=== PATIENT | male | born 2000 | race Two or more races ===

== ENCOUNTER 2025-01-29 17:49 | Emergency (ER) | payer MEDICAID, OTHER ==
[~2025-01-29] VITALS: Ht 180.3 cm; Wt 101.0 kg
[2025-01-29 18:22] LABS: Basophils # (auto) 0.1 10 ^3/uL (0-0.2); Basophils % (auto) 0.8 % (0.0-2.0); Eosinophils # (auto) 0.2 10 ^3/uL (0-0.8); Eosinophils % (auto) 2.9 % (0.0-7.0); Hematocrit 50.3 % (41.0-53.0); Hemoglobin 17.1 g/dL (13.5-17.5); Lymphocytes # (auto) 2.9 10 ^3/uL (0.4-5.4); Lymphocytes % (auto) 37.8 % (10.0-50.0); Mean Corpuscular Hemoglobin 30.5 pg (28.0-32.0); Mean Corpuscular Volume 89.7 fL (80.0-100.0); Monocytes # (auto) 0.3 10 ^3/uL (0-1.3); Monocytes % (auto) 4.6 % (0.0-12.0); Neutrophils # (auto) 4.1 10 ^3/uL (1.6-8.6); Neutrophils % (auto) 53.9 % (37.0-80.0); Nucleated Red Blood Cells % 0.1 %; Platelet Count (auto) 254 10^3/uL (140-450); Red Blood Cells 5.61 10^6/uL (4.5-5.90); Red Cell Distribution Width 13.6 % (11.8-14.3); White Blood Cell 7.5 10^3/uL (4.4-10.8)
[2025-01-29 18:38] LABS: Alanine Aminotransferase 36 U/L (7-40); Alkaline Phosphatase 98 U/L (46-116); Anion Gap 8 (5-15); Aspartate Aminotransferase 25 U/L (13-40); BUN/Creatinine Ratio 8.5 (10.0-20.0); Blood Urea Nitrogen 10 mg/dL (9-23); Carbon Dioxide 30 mmol/L (20-31); Chloride 101 mmol/L (98-107); Potassium 3.8 mmol/L (3.5-5.1); Sodium 139 mmol/L (136-145); Total Protein 7.7 g/dL (5.7-8.2)
[2025-01-29 18:39] LABS: Bilirubin, Total 0.5 mg/dL (0.2-1.0)
[2025-01-29 18:42] LABS: Glucose 136 mg/dL (74-106)
--- NOTE | 2025-01-29 18:59 | ECG ---
[facility] Test Date: 2025-01-29 Test Time: 18:01:06 Pat Name: MELVA WATT Department: ED Room: Gender: M Building [employer] Deputy [employer]: : 2000 Requested By: ALONSO RIOS Order Number: [id number] Reading MD: Costa Sheilds Measurements Intervals [place] Rate: 73 P: 55 MD: 131 QRS: 18 QRSD: 97 T: 46 QT: 370 QTc: 408 Interpretive Statements Sinus rhythm ST elev, probable normal early repol pattern Electronically Signed On 01-30-2025 13:46:12 PDT by Costa Shields Please click the below link to view image of tracing.
--- NOTE | 2025-01-29 19:00 | DVH ---
INDICATION: cp TECHNIQUE: Frontal view of the chest. COMPARISON: None FINDINGS: . The heart and mediastinal contours are grossly unremarkable. There is no evidence of pleural disea se. The lungs are clear. The bony structures of the chest are intact without fracture. IMPRESSION: 1. No evidence of acute disease.
--- NOTE | 2025-01-29 20:10 | ED.PDOC ---
HPI Comments 24y M who presents to the ED for chief complaint of chest pain. Pt states he has been having chest pain for the past 2 days. Pt states the pain was located by the L side of his chest, intermittent, dull in nature, non-radiating with no associated exacerbating factors. Pt states he assocaited history of hypertension and states he took 1 of his amlodipine and states it helped to somewhat alleviate his chest pain. Pt states was seen at [facility] yesterday for chest pain. Pt states he had cardiac work up done and states he was told his troponins came back 45 and 49 on repeat but states nothing was done and pt left after waiting for 9 hours. Pt states he now came to the ED for further evaluation. Pt states he also has been having palpitations for the past 2 days at night while attempting to sleep. Pt otherwise has noted history of HTN, asthma, sleep apnea and OCD. Pt otherwise denies diaphoresis, shortness of breath, fever, cough, chills, headache or dizziness. Pt in the ED, has noted RR of 11 but otherwise has noted stable vitals including temp of 98.6F, heart rate 75, BP of 125/82 and 02 sat of 97% on room air. Pt otherwise denies any other symptoms at this time. Chief Complaint: Chest Pain Time Seen by MD: 19:00 Primary Care Provider: NONE Reviewed Notes: Medications, Allergies Allergies: Coded Allergies: NO KNOWN ALLERGIES (Unverified , 01/29/25) Information Source: Patient Mode of Arrival: Ambulatory Brought in by: self Past Medical History PAST MEDICAL HISTORY: Asthma, HTN Past Medical History (Other): Sleep apnea, OCD, ADHD Surgical History: Denies all surgeries Family History Family History: Reviewed,noncontributory to illness, Family hx of DM, Family hx of HTN Social History Smoker: Cigarettes Alcohol: Denies ETOH Use Drugs: Denies Drug Use Lives In: Home Constitutional: denies: chills, diaphoresis, fatigue, fever, malaise, sweats, weakness, others EENTM: denies: blurred vision, double vision, ear bleeding, ear discharge, ear drainage, ear pain, ear ringing, eye pain, eye redness, hearing loss, mouth pain, mouth swelling, nasal discharge, nose bleeding, nose congestion, nose pain, photophobia, tearing, throat pain, throat swelling, voice changes, others Respiratory: denies: cough, hemoptysis, orthopnea, SOB at rest, shortness of breath, SOB with excertion, stridor, wheezing, others Cardiovascular: reports: chest pain; denies: dizzy spells, diaphoresis, Dyspnea on exertion, edema, irregular heart beat, left arm pain, lightheadedness, palpitations, PND, syncope, others Gastrointestinal: denies: abdomen distended, abdominal pain, blood streaked bowels, constipated, diarrhea, dysphagia, difficulty swallowing, hematemesis, melena, nausea, poor appetite, poor fluid intake, rectal bleeding, rectal pain, vomiting, others Genitourinary: denies: burning, dysuria, flank pain, frequency, hematuria, incontinence, penile discharge, penile sore, pain, testicle pain, testicle swelling, urgency, others Neurological: denies: dizziness, fainting, headache, left sided numbness, left sided weakness, numbness, paresthesia, pre-existing deficit, right sided numbn ess, right sided weakness, seizure, speech problems, tingling, tremors, weakness, others Musculoskeletal: denies: back pain, gout, joint pain, joint swelling, muscle pain, muscle stiffness, neck pain, others Integumetry: denies: bruises, change in color, change in hair/nails, dryness, laceration, lesions, lumps, rash, wounds, others Allergic/Immunocompromised: denies: Difficulty Healing, Frequent Infections, Hives, Itching, others Hematologic/Lymphatic: denies: anemia, blood clots, easy bleeding, easy bruising, swollen glands, others Endocrine: denies: excessive hunger, excessive sweating, excessive thirst, excessive urination, flushing, intolerance to cold, intolerance to heat, unexplained weight gain, unexplained weight loss, others Psychiatric: denies: anxiety, bipolar disorder, depression, hopeless, panic disorder, schizophrenia, sleepless, suicidal, others All Other Systems: Reviewed and Negative Physical Exam General Appearance: No Apparent Distress, Obese HEENT: Other (Pupils and face symmetric. Moist mucous membranes.) Neck: Full Range of Motion, Normal Inspection Respiratory: Lungs Clear, No Accessory Muscle Use, No Respiratory Distress, Normal Breath Sounds Cardiovascular: No Edema, No JVD, Regular Rate/Rhythm Breast Exam: Deferred Gastrointestinal: Non Tender, Soft Genitalia: Deferred Pelvic: Deferred Rectal: Deferred Extremities: Normal inspection, Normal range of motion, Non-tender, No pedal edema Neurologic: Alert (Oriented x4), Other (Ambulatory without difficulty.) Cerebellar Function: NOT DONE Reflexes: NOT DONE Skin: Dry, Normal Color, Warm Lymphatic: NOT DONE EKG EKG : Comments Sinus rhythm, rate 73, normal intervals, normal axis, normal QRS, upsloping ST elevation in leads V2 through V4 consistent with early repolarization Was a procedure done? Was a procedure done?: No CP Differential Dx Differential Diagnosis: Angina, Anxiety / Panic Attack, Electrolyte Disorder, DC, Pulmonary Embolus Differential Diagnosis: CHF Differential Diagnosis: Aortic dissection, Chest Wall Pain, Costochondritis, Esophageal reflux/spasm, Gastritis, Pericarditis, Pneumonia X-Ray, Labs, Meds, VS Vital Signs Date Time Temp Pulse Resp B/P (MAP) Pulse Ox O2 Delivery O2 Flow Rate FiO2 01/29/25 18:03 73 01/29/25 18:02 98.6 75 11 125/82 (96) 97 98.6 Lab Test 01/29/25 20:13 01/29/25 18:38 01/29/25 17:57 Range/Units Urine Color Pending Urine Clarity Pending Urine pH Pending Urine Specific [place] Pending Urine Protein Pending Urine Ketones Pending Urine Blood Pending Urine Nitrite Pending Urine Bilirubin Pending Urine Urobilinogen Pending Urine Leukocyte Esterase Pending Urine RBC Pending Urine Microscopic WBC Pending Urine Squamous Epithelial Cells Pending Urine Bacteria Pending Urine Glucose Pending Troponin I High Sensitivity 18 21 </=54 ng/L White Blood Count 7.5 4.4-10.8 10^3/uL Red Blood Count 5.61 4.5-5.90 10^6/uL Hemoglobin 17.1 13.5-17.5 g/dL Hematocrit 50.3 41.0-53.0 % Mean Corpuscular Volume 89.7 80.0-100.0 fL Mean Corpuscular Hemoglobin 30.5 28.0-32.0 pg Mean Corpuscular Hemoglobin Concent 34.0 32.0-36.0 g/dL Red Cell Distribution Width 13.6 11.8-14.3 % Platelet Count 254 140-450 10^3/uL Mean Platelet Volume 9.6 6.9-10.8 fL Neutrophils (%) (Auto) 53.9 37.0-80.0 % Lymphocytes (%) (Auto) 37.8 10.0-50.0 % Monocytes (%) (Auto) 4.6 0.0-12.0 % Eosinophils (%) (Auto) 2.9 0.0-7.0 % Basophils (%) (Auto) 0.8 0.0-2.0 % Neutrophils # (Auto) 4.1 1.6-8.6 10 ^3/uL Lymphocytes # (Auto) 2.9 0.4-5.4 10 ^3/uL Monocytes # (Auto) 0.3 0-1.3 10 ^3/uL Eosinophils # (Auto) 0.2 0-0.8 10 ^3/uL Basophils # (Auto) 0.1 0-0.2 10 ^3/uL Nucleated Red Blood Cells 0.1 % D-Dimer, Quantitative < 0.19 0.0-0.49 mg/L FEU Sodium Level 139 136-145 mmol/L Potassium Level 3.8 3.5-5.1 mmol/L Chloride Level 101 98-107 mmol/L Carbon Dioxide Level 30 20-31 mmol/L Anion Gap 8 5-15 Blood Urea Nitrogen 10 9-23 mg/dL Creatinine 1.17 0.700-1.30 mg/dL Glomerular Filtration Rate Calc 90 >90 mL/min BUN/Creatinine Ratio 8.5 L 10.0-20.0 Serum Glucose 136 H 74-106 mg/dL Calcium Level 10.0 8.7-10.4 mg/dL Total Bilirubin 0.5 0.2-1.0 mg/dL Aspartate Amino Transferase (AST) 25 13-40 U/L Alanine Aminotransferase (ALT) 36 7-40 U/L Alkaline Phosphatase 98 46-116 U/L B-Type Natriuretic Peptide 11.52 0-100 pg/mL Total Protein 7.7 5.7-8.2 g/dL Albumin 5.0 H 3.2-4.8 g/dL [address] [address] Ph: [phone] DIAGNOSTIC IMAGING Diagnostic Imaging Report : [id number] Signed PATIENT: MELVA WATT ACCT: [id number] UNIT: [id number] : 2000 LOC: ER ROOM / BED: / AGE / SEX: 24 / M ADM STATUS: REG ER SERVICE 00 ORDERING PHYSICIAN: ALONSO FLORES MD PROCEDURE(s): CXRP - CHEST PORTABLE REASON: cp ORDER NUMBER(s): [id number], ACCESSION NUMBER(s): [id number] INDICATION: cp TECHNIQUE: Frontal view of the chest. COMPARISON: None FINDINGS: . The heart and mediastinal contours are grossly unremarkable. There is no evidence of pleural disease. The lungs are clear. The bony structures of the chest are intact without fracture. IMPRESSION: 1. No evidence of acute disease. ATED BY: BERTRAND YOUNG MD DICTATED DATE/TIME: 01/29/251857 SIGNED BY: BERTRAND YOUNG MD SIGNED DATE/TIME: 01/29/251857 CC: X-Ray, Labs, Meds, VS Comment 24-year-old male with a history of hypertension, asthma, sleep apnea, OCD and AD HD presenting complaining of chest pain for the past 2 days Vitals unremarkable Exam unremarkable Rhythm strip independently interpreted by me: Sinus rhythm, rate 73, no ectopy. Chest x-ray IMPRESSION: 1. No evidence of acute disease. CBC normal, CMP unremarkable, BNP normal, troponin negative x2 Patient treated with the following in the ED: Toradol 60 mg IM On re-evaluation, patient is pain-free with stable vitals. Hospitalization was considered, however patient had rapid improvement of symptoms with treatment in the ED, initial cardiac workup is unremarkable, and I am now comfortable discharging the patient with close follow-up with his primary physician for referral to a manager energy for further evaluation. Rx ibuprofen Time of 1ST Reevaluation: 19:30 Reevaluation 1ST: Improved Patient Education/Counseling: Diagnosis, Treatment Family Education/Counseling: No Family Present Additional Information -Reviewed patient's previous visit(s): - The following tests were ordered, and results were reviewed by me: trop x3, ekg x3, cbc, chest x-ray. cmp, d-dimer, BNP, ua - Additional information was gathered from interviewing the following independent Historian: none - I reviewed and agreed with the following test results read by other provider: radiologist - I discussed treatments and results with medical personnel and: patient Comprehensive systems review obtained and negative except for what is stated in the HPI. Departure 1 Departure Time of Disposition: 21:17 Impression: Primary Impression: Chest pain with low risk for cardiac etiology Disposition: HOME / SELF CARE / HOMELESS Condition: Stable Referrals: BISHOP YUN Sr., MD Additional Instructions: Your blood tests, including screening test for heart attack and heart failure, were unremarkable. Your EKG was unremarkable. Your chest x-ray was normal. I have prescribed medication to take as needed for pain. Follow-up with your primary doctor in 1-2 days for referral to a manager energy for further evaluation. Alternatively, follow-up directly with Dr. Yun. e-Prescriptions Ibuprofen Micronized (Ibuprofen) 600 Mg Tab 600 MG PO Q6HP PRN, #30 TAB Prn pain. Take with food. Prov: ALONSO FLORES MD 01/29/25 Discharged With: Self Critical Care Note Critical Care Time?: No Stability Stability form required: No Heart Score Heart Score: Heart Score Response (Comments) Value History Slightly Suspicious 0 EKG Repolarization Disturb 1 Age <45 0 Risk Factors 1 or 2 risk factors 1 Troponin Normal limit 0 Total 2 I personally scribed for ALONSO FLORES MD ([email or web address]) on 01/29/25 at 20:10. Electronically submitted by Aliya Snowden ([email or web address]). ALONSO FLORES MD Jan 29, 2025 20:10
[2025-01-29 21:06] LABS: Urine Bacteria None Seen /hpf (None Seen)
[2025-01-29] MEDS: KETOROLAC TROMETH 60MG/2ML VIAL IM ONE (21:15)
[2025-01-29] MEDS ORDERED: IBUP1TAB5 PO (21:19)
[2025-01-29 21:36] LABS: Urine Blood Negative /uL (Negative); Urine Clarity Clear (Clear); Urine Color Yellow (Yellow); Urine Mucus FEW (None Seen); Urine Protein, UAD Negative (Negative); Urine Specific Gravity 1.031 (1.001-1.035); Urine Squamous Epithelial Cell FEW /hpf (<5); Urine Urobilinogen Normal (Negative); Urine WBC 1 /HPF (0-3)
[2025-01-29 22:05] VITALS: BP 122/73; PULSE 67; RESP 19; TEMP 98.2; O2SAT 95
== END 2025-01-29 22:05 | disposition home or self-care (01) ==
LOC: ER 17:49
DX: R07.89 Other chest pain (principal); F17.210 Nicotine dependence, cigarettes, uncomplicated; J45.909 Unspecified asthma, uncomplicated; I10 Essential (primary) hypertension; Z79.899 Other long term (current) drug therapy
CPT/HCPCS: 36415; 71045; 80053; 81001; 83880; 84484; 85025; 85379; 93005